=== PATIENT | male | born 1965 | race Caucasian/White ===

== ENCOUNTER 2025-03-10 12:18 | Outpatient (CLI) | payer MEDICAID, SELFPAY ==
--- NOTE | 2025-03-10 12:24 | XR_ITS ---
FINAL REPORT TECHNIQUE: Sacroiliac joints, 4 views CLINICAL HISTORY: .back pain..no trauma COMPARISON: None FINDINGS: SACROILIAC JOINTS: AP and lateral views of the sacroiliac joints were obtained. There is no prior exam for comparison. There is no acute fracture or other acute osseous abnormality. The SI joints are symmetric bilaterally. The sacrococcygeal articulation appears within normal limits. No acute soft tissue abnormality is present. IMPRESSION: No acute bony abnormality. Reviewed, Interpreted and Dictated by Adal Dejesus MD Transcribed by Junie Perez Authenticated and [facility]
--- NOTE | 2025-03-10 12:24 | XR_ITS ---
FINAL REPORT CLINICAL HISTORY: .rt hip pain..no trauma COMPARISON: None FINDINGS: RIGHT HIP 3 views of the right hip demonstrate no acute fracture or dislocation. The joint spaces appear normal. The visualized bony structures are well aligned. No soft tissue abnormality is seen. IMPRESSION: No acute bony abnormality. Reviewed, Interpreted and Dictated by Adal Dejesus MD Transcribed by Junie Perez Authenticated and [facility]
--- NOTE | 2025-03-10 12:24 | XR_ITS ---
FINAL REPORT TECHNIQUE: 5 views CLINICAL HISTORY: back pain..no trauma FINDINGS: LUMBAR SPINE: 5 views of the lumbar spine were obtained. There is no fracture present. There is no malalignment. There is moderate facet sclerosis of the lower lumbar spine present. IMPRESSION: No acute process. Reviewed, Interpreted and Dictated by Adal Dejesus MD Transcribed by Junie Perez Authenticated and [facility]
== END 2025-03-10 23:59 | disposition home or self-care (01) ==
LOC: RAD 12:21
PROVIDERS: PCP Internal Medicine Adolescent Medicine; Visit Provider Internal Medicine Adolescent Medicine
DX: M25.551 Pain in right hip (principal); M54.50 Low back pain, unspecified
CPT/HCPCS: 72110; 72202; 73502